=== PATIENT | female | born 1980 | race Two or more races ===

== ENCOUNTER → 2017-12-08 | Outpatient (CLI) | payer OTHER ==
[~2017-12-08] MED LIST: CATAFLAM50 MG PO; [UNRECOGNIZED DRUG - OTHER]
== END | disposition home or self-care (01) ==
LOC: NUCLEAR 08:00
DX: R10.9 Unspecified abdominal pain (principal); R11.0 Nausea; R10.13 Epigastric pain
CPT/HCPCS: 78227; J2805; A9537

== ENCOUNTER 2017-12-16 08:44 | Outpatient (CLI) | payer OTHER | END 2017-12-16 09:04 | disposition home or self-care (01) | LOC: RX STUDY 08:44 | DX: R10.9 Unspecified abdominal pain (principal); R11.0 Nausea; R10.13 Epigastric pain ==

== ENCOUNTER 2022-06-30 14:18 | Outpatient (CLI) | payer OTHER | END 2022-06-30 14:39 | disposition home or self-care (01) | LOC: MAMO-SONO 14:18 | PROVIDERS: ATTEND Obstetrics & Gynecology | DX: Z12.31 Encounter for screening mammogram for malignant neoplasm of breast (principal); N60.11 Diffuse cystic mastopathy of right breast ==